=== PATIENT | female | born 1955 | race Caucasian/White ===

== ENCOUNTER 2017-03-15 13:07 | Outpatient (CLI) | payer MEDICARE ==
[2017-03-15 13:51] LABS: ALT (SGPT) 15 U/L (8-55); AST (SGOT) 19 U/L (5-34); Alkaline Phosphatase 68 U/L (40-150); Bilirubin, Direct 0.3 mg/dL (0.1-0.3); Bilirubin, Total 0.9 mg/dL (0.2-1.2); Cardiac Risk 3.6 (Less than 4.5); Cholesterol 169 mg/dl (< 200 Desired); HDL Cholesterol 47 mg/dL (>60 Neg Risk); LDL Cholesterol, Calculated 102 mg/dL; Protein, Total 6.9 g/dL (6.0-8.3); Triglycerides 100 mg/dL (Less than 150)
[2017-03-15 15:26] LABS: Free T4 (Free Thyroxine) 1.06 ng/dL (0.70-1.48); Thyroid Stimulating Hormone 1.6744 uIU/mL (0.35-4.94)
== END 2017-03-15 13:08 | disposition home or self-care (01) ==
LOC: MADLAB 13:07
PROVIDERS: ATTEND Specialist
DX: E03.9 Hypothyroidism, unspecified (principal); I25.10 Atherosclerotic heart disease of native coronary artery without angina pectoris
CPT/HCPCS: 36415; 80061; 80076; 84439; 84443; 84479

== ENCOUNTER 2017-08-02 12:48 | Outpatient (CLI) | payer MEDICARE ==
[2017-08-02 13:03] LABS: #Eosinphils 0.2 thou/uL (0.0-0.7); #Lymphocytes 1.2 thou/uL (1.20-3.40); #Monocytes 0.5 thou/uL (0.11-0.59); #Neutrophils 3.7 thou/uL (1.40-6.50); %Basophils 0.4 % (0.0-1.0); %Eosinophils 2.9 % (0.0-10.0); %Lymphocytes 21.5 % (21.0-51.0); %Monocytes 8.1 % (0.0-10.0); Hemoglobin 12.3 g/dL (12.0-16.0); Mean Corpuscular Hemoglobin 32.9 pg (27.0-31.0); Mean Corpuscular Volume 96.7 fl (81.0-99.0); Mean Platelet Volume 9.7 fL (7.4-10.4); Platelet Count 158 thou/uL (130-400); RBC Distribution Width 11.9 % (11.5-14.5); Red Blood Cell (RBC) Count 3.73 mill/uL (4.20-5.40); White Blood Cell (WBC) Count 5.6 thou/uL (4.8-10.8)
[2017-08-02 13:18] LABS: ALT (SGPT) Less than 6 U/L (8-55); AST (SGOT) 12 U/L (5-34); Albumin 3.6 g/dL (3.5-5.0); Alkaline Phosphatase 72 U/L (40-150); Anion Gap 15 mmol/L (10-20); BUN (Urea Nitrogen) 12 mg/dL (9.8-20.1); Bilirubin, Total 0.7 mg/dL (0.2-1.2); Calc. Creatinine Clearance 0 mL/min (70-130); Calcium 8.9 mg/dL (7.8-10.44); Carbon Dioxide 30 mmol/L (22-29); Chloride 102 mmol/L (98-107); Estimated GFR-MDRD 67; Globulin 2.6 g/dL (2.4-3.5); Glucose 105 mg/dL (70-105); Magnesium 1.8 mg/dL (1.6-2.6); Potassium 3.5 mmol/L (3.5-5.1); Protein, Total 6.2 g/dL (6.0-8.3); Sodium 143 mmol/L (136-145)
--- NOTE | 2017-08-02 15:30 | RAD ---
TWO VIEWS LEFT HIP: Date: 08-02-17 History: Left hip pain after a fall two months ago. FINDINGS: There is no evidence of a fracture, dislocation, or other osseous abnormality. Phleboliths overlie th e left hemipelvis. IMPRESSION: No acute osseous abnormality left hip. POS: [facility]
--- NOTE | 2017-08-02 15:35 | RAD ---
AP PELVIS: Date: 08-02-17 History: Left hip pain after a fall two months ago. Comparison: 09-01-15 FINDINGS: Partial visualization of an electronic device overlying the right lower quadrant. The osseous structu re do appear intact and no obvious fracture is seen involving the pelvis. Multiple phleboliths overli e the pelvis. IMPRESSION: No acute osseous abnormality. POS: [facility]
== END 2017-08-02 12:49 | disposition home or self-care (01) ==
LOC: MADLAB 12:48
PROVIDERS: ATTEND Family Medicine
DX: M25.552 Pain in left hip (principal); R60.9 Edema, unspecified; I25.2 Old myocardial infarction
CPT/HCPCS: 36415; 72170; 80053; 83735; 83880; 84484; 85025; 85652

== ENCOUNTER 2019-01-31 11:25 | Emergency (ER) | payer MEDICARE ==
[2019-01-31 12:19] LABS: #Basophils 0.1 thou/uL (0.0-0.2); #Eosinphils 0.1 thou/uL (0.0-0.7); #Lymphocytes 1.4 thou/uL (1.20-3.40); #Monocytes 0.8 thou/uL (0.11-0.59); #Neutrophils 7.8 thou/uL (1.40-6.50); %Basophils 0.7 % (0.0-1.0); %Eosinophils 0.7 % (0.0-10.0); %Lymphocytes 14.1 % (21.0-51.0); %Monocytes 8.2 % (0.0-10.0); %Neutrophils 76.3 % (42.0-75.0); Hemoglobin 13.6 g/dL (12.0-16.0); Mean Corpuscular HGB CONC 34.5 g/dL (32.0-36.0); Mean Corpuscular Hemoglobin 31.4 pg (27.0-31.0); Mean Platelet Volume 9.7 fL (7.4-10.4); Platelet Count 176 thou/uL (130-400); RBC Distribution Width 11.6 % (11.5-14.5); Red Blood Cell (RBC) Count 4.34 mill/uL (4.20-5.40); White Blood Cell (WBC) Count 10.2 thou/uL (4.8-10.8)
[2019-01-31 12:30] LABS: ALT (SGPT) 17 U/L (8-55); AST (SGOT) 15 U/L (5-34); Albumin 4.2 g/dL (3.4-4.8); Alkaline Phosphatase 116 U/L (40-150); Anion Gap 18 mmol/L (10-20); BUN (Urea Nitrogen) 8 mg/dL (9.8-20.1); Bilirubin, Total 1.1 mg/dL (0.2-1.2); CK (CPK) 153 U/L (29-168); Calc. Creatinine Clearance 0 mL/min (70-130); Calcium 9.2 mg/dL (7.8-10.44); Carbon Dioxide 25 mmol/L (23-31); Chloride 102 mmol/L (98-107); Estimated GFR-MDRD 35; Globulin 3.2 g/dL (2.4-3.5); Glucose 98 mg/dL (80-115); Lipase 4 U/L (8-78); Potassium 3.3 mmol/L (3.5-5.1); Protein, Total 7.4 g/dL (6.0-8.3); Sodium 142 mmol/L (136-145)
[2019-01-31 12:33] LABS: CKMB 1.5 ng/mL (0-6.6)
--- NOTE | 2019-01-31 12:33 | CT ---
CT Brain WO Con: 01/31/2019 11:49 AM CLINICAL HISTORY: Fall. COMPARISON: 03/05/2018 FINDINGS: Hemorrhage: None. Ventricular system: Normal in size and morphology for the patient's age. Cerebral parenchyma: Microvascular ischemic disease Midline shift: None. Mass: No mass effect. Calvarium: Normal. Visualized Paranasal sinuses: Clear. IMPRESSION: No acute intracranial abnormalities. Multifocal hypoattenuating foci of the cerebral white matter indicative of gliosis from microvascular ischemic disease.
--- NOTE | 2019-01-31 12:39 | RAD ---
Exam: Chest one view HISTORY:Altered mental status Comparison: 03/06/2018 FINDINGS: Lungs: No masses or consolidation. Cardiac silhouette:Remains enlarged Pulmonary vessels: Normal Pleural Spaces: Clear Pneumothorax: None Extrinsic electronic device overlies the chest. Osseous abnormalities: None of acuity. IMPRESSION: Stable chest. No focal consolidation.
[2019-01-31 13:13] LABS: Bilirubin Negative (Negative); Blood, Urine Negative (Negative); Clarity Clear (Clear); Glucose, Urine (Dipstick) Negative (Negative); Leukocyte Negative (Negative); Nitrite Negative (Negative); Protein, Urine (Dipstick) Negative (Neg-Trace); Urobilinogen 0.2 mg/dL (0.2-1.0)
== END 2019-01-31 14:20 | disposition short-term general hospital (02) ==
LOC: MADERS 11:25
DX: S09.90XA Unspecified injury of head, initial encounter (principal); R55 Syncope and collapse; E03.9 Hypothyroidism, unspecified; I10 Essential (primary) hypertension; F41.9 Anxiety disorder, unspecified; F32.9 Major depressive disorder, single episode, unspecified; F17.210 Nicotine dependence, cigarettes, uncomplicated; Z79.51 Long term (current) use of inhaled steroids; Z79.899 Other long term (current) drug therapy; W19.XXXA Unspecified fall, initial encounter
CPT/HCPCS: 36415; 51701; 70450; 71045; 80053; 81003; 82550; 82553; 83605; 83690; 84484; 85025; 87040; 93005; A4353

== ENCOUNTER 2020-07-14 14:56 | Outpatient (CLI) | payer MEDICARE ==
--- NOTE | 2020-07-14 15:12 | RAD ---
XR Chest Pa Lat STANDARD HISTORY: Pneumonia COMPARISON: None FINDINGS: The heart size is normal. The lungs are well expanded without focal areas of consolidation, pneumothorax or pleural effusions. Extrinsic electronic device overlying the left posterior chest is again seen. There are postop changes in the cervical spine. IMPRESSION: No radiographic evidence of acute cardiopulmonary process.
== END 2020-07-14 14:57 | disposition home or self-care (01) ==
LOC: MADLAB 14:56
PROVIDERS: ATTEND Nurse Practitioner Family
DX: J18.9 Pneumonia, unspecified organism (principal); J44.9 Chronic obstructive pulmonary disease, unspecified; N17.9 Acute kidney failure, unspecified
CPT/HCPCS: 71046

== ENCOUNTER 2020-12-16 17:39 | Emergency (ER) | payer MEDICARE ==
[2020-12-17 17:58] LABS: SARS-CoV-2 PCR by NAA Not Detected (NotDetected)
== END 2020-12-16 18:10 | disposition home or self-care (01) ==
LOC: MADERS 17:39
DX: J44.9 Chronic obstructive pulmonary disease, unspecified (principal); Z20.822 Contact with and (suspected) exposure to COVID-19; E03.9 Hypothyroidism, unspecified; I10 Essential (primary) hypertension; F17.210 Nicotine dependence, cigarettes, uncomplicated
CPT/HCPCS: 71046; U0003; U0005; 87635

== ENCOUNTER 2021-02-13 16:23 | Outpatient (CLI) | payer MEDICARE | END 2021-02-13 16:24 | disposition home or self-care (01) | LOC: MADRAD 16:23 | PROVIDERS: ATTEND Nurse Practitioner Family | DX: M25.551 Pain in right hip (principal); M25.552 Pain in left hip ==

== ENCOUNTER 2021-04-14 01:00 | Emergency (ER) | payer MEDICARE ==
[2021-04-14] MEDS ORDERED: Gabapentin 100 MG CAP ONE (01:19)
[2021-04-14] MEDS ORDERED: Acetaminophen 325 MG TAB ONE (01:19)
[2021-04-14] MEDS ORDERED: HYDROcodone/Acetaminophen 10/325 mg Tablet ONE (01:19)
[2021-04-14] MEDS ORDERED: Dexamethasone 4 MG TAB ONE (01:20)
== END 2021-04-14 01:35 | disposition home or self-care (01) ==
LOC: MADERS 01:00
DX: S76.912A Strain of unspecified muscles, fascia and tendons at thigh level, left thigh, initial encounter (principal); E03.9 Hypothyroidism, unspecified; I25.10 Atherosclerotic heart disease of native coronary artery without angina pectoris; I10 Essential (primary) hypertension; F17.210 Nicotine dependence, cigarettes, uncomplicated; J44.9 Chronic obstructive pulmonary disease, unspecified; Z79.82 Long term (current) use of aspirin; Z79.899 Other long term (current) drug therapy; W19.XXXA Unspecified fall, initial encounter
CPT/HCPCS: 99283; J8540

== ENCOUNTER 2021-06-30 15:52 | Outpatient (CLI) | payer MEDICARE | END 2021-06-30 15:53 | disposition home or self-care (01) | LOC: MADRAD 15:52 | PROVIDERS: ATTEND Nurse Practitioner Family | DX: M54.50 Low back pain, unspecified (principal); J44.9 Chronic obstructive pulmonary disease, unspecified; R05.9 Cough, unspecified; N17.9 Acute kidney failure, unspecified; M47.816 Spondylosis without myelopathy or radiculopathy, lumbar region | CPT/HCPCS: 71046; 72110 ==

== ENCOUNTER 2022-04-03 12:00 | Emergency (ER) | payer MEDICARE, OTHER ==
[2022-04-03] MEDS ORDERED: Acetaminophen 325 MG TAB ONE (13:18)
== END 2022-04-03 14:32 | disposition home or self-care (01) ==
LOC: MADERS 12:00
DX: S16.1XXA Strain of muscle, fascia and tendon at neck level, initial encounter (principal); S39.012A Strain of muscle, fascia and tendon of lower back, initial encounter; M25.551 Pain in right hip; M25.512 Pain in left shoulder; E07.9 Disorder of thyroid, unspecified; I10 Essential (primary) hypertension; E03.9 Hypothyroidism, unspecified; J44.9 Chronic obstructive pulmonary disease, unspecified; F17.210 Nicotine dependence, cigarettes, uncomplicated; W18.12XA Fall from or off toilet with subsequent striking against object, initial encounter; Z95.5 Presence of coronary angioplasty implant and graft
CPT/HCPCS: 72125; 72131; 72170

== ENCOUNTER 2022-06-20 16:09 | Emergency (ER) | payer OTHER | END 2022-06-20 17:30 | disposition home or self-care (01) | LOC: MADERS 16:09 | DX: S92.322A Displaced fracture of second metatarsal bone, left foot, initial encounter for closed fracture (principal); S92.332A Displaced fracture of third metatarsal bone, left foot, initial encounter for closed fracture; S92.342A Displaced fracture of fourth metatarsal bone, left foot, initial encounter for closed fracture; M25.532 Pain in left wrist; I10 Essential (primary) hypertension; E03.9 Hypothyroidism, unspecified; J44.9 Chronic obstructive pulmonary disease, unspecified; F17.210 Nicotine dependence, cigarettes, uncomplicated; W01.0XXA Fall on same level from slipping, tripping and stumbling without subsequent striking against object, initial encounter; Z95.5 Presence of coronary angioplasty implant and graft; Z79.899 Other long term (current) drug therapy ==

== ENCOUNTER 2022-11-02 07:18 | Emergency (ER) | payer OTHER ==
[2022-11-02 08:56] LABS: #Basophils 0.1 thou/uL (0.0-0.2); #Eosinphils 0.3 thou/uL (0.0-0.7); #Lymphocytes 1.3 thou/uL (1.20-3.40); #Monocytes 0.8 thou/uL (0.11-0.59); #Neutrophils 7.6 thou/uL (1.40-6.50); %Basophils 1.1 % (0.0-1.0); %Eosinophils 3.4 % (0.0-10.0); %Lymphocytes 12.4 % (21.0-51.0); %Monocytes 8.2 % (0.0-10.0); %Neutrophils 74.9 % (42.0-75.0); Hemoglobin 12.7 g/dL (12.0-16.0); Mean Corpuscular HGB CONC 35.1 g/dL (32.0-36.0); Mean Corpuscular Hemoglobin 30.4 pg (27.0-31.0); Mean Corpuscular Volume 86.5 fl (78.0-98.0); Mean Platelet Volume 7.6 fL (7.4-10.4); Platelet Count 207 10x3/uL (130-400); RBC Distribution Width 11.2 % (11.5-14.5); Red Blood Cell (RBC) Count 4.19 mill/uL (4.20-5.40); White Blood Cell (WBC) Count 10.1 10x3/uL (4.8-10.8)
[2022-11-02 09:14] LABS: ALT (SGPT) 15 U/L (8-55); AST (SGOT) 18 U/L (5-34); Alkaline Phosphatase 105 U/L (40-110); Anion Gap 14 mmol/L (10-20); BUN (Urea Nitrogen) 23 mg/dL (9.8-20.1); Bilirubin, Total 0.4 mg/dL (0.2-1.2); CK (CPK) 222 U/L (29-168); Calc. Creatinine Clearance 0 mL/min (70-130); Calcium 8.9 mg/dL (7.8-10.44); Carbon Dioxide 24 mmol/L (23-31); Chloride 99 mmol/L (98-107); Estimated GFR 38; Globulin 2.4 g/dL (2.4-3.5); Glucose 107 mg/dL (80-115); Magnesium 2.3 mg/dL (1.6-2.6); Potassium 4.2 mmol/L (3.5-5.1); Protein, Total 6.4 g/dL (5.8-8.1); Sodium 133 mmol/L (136-145)
[2022-11-02 09:34] LABS: Bilirubin Negative (Negative); Blood, Urine Negative (Negative); Clarity Clear (Clear); Glucose, Urine (Dipstick) Negative (Negative); Ketone, Urine Negative (Negative); Leukocyte Negative (Negative); Nitrite Negative (Negative); Protein, Urine (Dipstick) Trace mg/dL (Neg-Trace); Urobilinogen 0.2 mg/dL (Less than 2); pH, Urine 5.5 (5.0-9.0)
[2022-11-02 09:36] LABS: Specific Gravity, Urine 1.023 (1.002-1.036)
[2022-11-02 09:47] LABS: Amphetamine Not Detected (NotDetected); Barbiturates Screen Not Detected (NotDetected); Benzodiazepine Screen Not Detected (NotDetected); Cocaine Metabolite Screen Not Detected (NotDetected); Methadone Not Detected (NotDetected); Methamphetamine Detected (NotDetected); Opiate Screen Not Detected (NotDetected); Oxycodone Screen Not Detected (NotDetected); Phencyclidine (PCP) Not Detected (NotDetected); THC/Cannabinoid Screen Detected (NotDetected); Tricyclic Screen Not Detected (NotDetected)
[2022-11-02 09:48] LABS: Medtox Control Line Valid? VALID (VALID)
[2022-11-02] MEDS ORDERED: Acetaminophen 500 MG TAB ONE (13:32)
== END 2022-11-02 14:04 | disposition home or self-care (01) ==
LOC: MADERS 07:18
DX: M25.512 Pain in left shoulder (principal); G47.30 Sleep apnea, unspecified; M54.6 Pain in thoracic spine; E07.89 Other specified disorders of thyroid; E03.9 Hypothyroidism, unspecified; I10 Essential (primary) hypertension; J44.9 Chronic obstructive pulmonary disease, unspecified; F17.210 Nicotine dependence, cigarettes, uncomplicated; Z79.899 Other long term (current) drug therapy
CPT/HCPCS: 36416; 70450; 70486; 71045; 71250; 72125; 80053; 80306; 81003; 82550; 83605; 83735; 83880; 84484; 85025; 93005

== ENCOUNTER 2022-12-02 19:19 | Emergency (ER) | payer OTHER ==
[2022-12-02] MEDS ORDERED: Ipratropium/Albuterol 3 ML NEB ONE (19:47)
[2022-12-02] MEDS ORDERED: Aspirin Chewable 81 MG TAB ONE (19:48)
[2022-12-02] MEDS ORDERED: Nitroglycerin 0.4 MG TAB 1 EACH ONE (19:48)
[2022-12-02 19:57] LABS: #Basophils 0.1 thou/uL (0.0-0.2); #Eosinphils 0.3 thou/uL (0.0-0.7); #Lymphocytes 1.4 thou/uL (1.20-3.40); #Monocytes 0.5 thou/uL (0.11-0.59); #Neutrophils 7.6 thou/uL (1.40-6.50); %Basophils 0.8 % (0.0-1.0); %Eosinophils 2.7 % (0.0-10.0); %Lymphocytes 14.1 % (21.0-51.0); %Monocytes 5.5 % (0.0-10.0); %Neutrophils 76.8 % (42.0-75.0); Hemoglobin 13.4 g/dL (12.0-16.0); Mean Corpuscular HGB CONC 33.3 g/dL (32.0-36.0); Mean Corpuscular Hemoglobin 31.2 pg (27.0-31.0); Mean Corpuscular Volume 93.7 fl (78.0-98.0); Mean Platelet Volume 10.3 fL (7.4-10.4); Platelet Count 222 10x3/uL (130-400); RBC Distribution Width 13.1 % (11.5-14.5); White Blood Cell (WBC) Count 9.9 10x3/uL (4.8-10.8)
[2022-12-02 20:19] LABS: ALT (SGPT) 16 U/L (8-55); AST (SGOT) 18 U/L (5-34); Alkaline Phosphatase 96 U/L (40-110); Anion Gap 18 mmol/L (10-20); BUN (Urea Nitrogen) 22 mg/dL (9.8-20.1); Bilirubin, Total 0.3 mg/dL (0.2-1.2); CK (CPK) 126 U/L (29-168); Calc. Creatinine Clearance 0 mL/min (70-130); Calcium 8.8 mg/dL (7.8-10.44); Carbon Dioxide 18 mmol/L (23-31); Chloride 107 mmol/L (98-107); Estimated GFR 40; Globulin 2.5 g/dL (2.4-3.5); Glucose 104 mg/dL (80-115); Lipase 37 U/L (8-78); Magnesium 1.9 mg/dL (1.6-2.6); Potassium 3.4 mmol/L (3.5-5.1); Protein, Total 6.5 g/dL (5.8-8.1); Sodium 140 mmol/L (136-145)
[2022-12-02] MEDS ORDERED: cefTRIAXone (ROCEPHIN) 2 GM VIAL ONE (20:25)
[2022-12-02] MEDS ORDERED: Sodium Chloride 0.9% 100 ML ONE (20:26)
[2022-12-02] MEDS ORDERED: methylPREDNISolone Sod Succ/PF 125 MG/2 ML VIAL ONE (20:26)
[2022-12-02] MEDS ORDERED: Ipratropium Bromide 2.5 ml Neb ONE (20:58)
[2022-12-02] MEDS ORDERED: Potassium Chloride 20 MEQ TAB ONE (20:59)
[2022-12-02] MEDS ORDERED: Sodium Chloride 0.9% 250 ML 250 ML ONE (21:06)
[2022-12-02] MEDS ORDERED: Azithromycin 500 MG VIAL ONE (21:06)
[2022-12-02] MEDS ORDERED: Ondansetron PF 4 MG/2 ML Vial ONE (21:30)
== END 2022-12-02 22:35 | disposition home or self-care (01) ==
LOC: MADERS 19:19
DX: J44.1 Chronic obstructive pulmonary disease with (acute) exacerbation (principal); I10 Essential (primary) hypertension; E03.9 Hypothyroidism, unspecified; G47.30 Sleep apnea, unspecified; F17.210 Nicotine dependence, cigarettes, uncomplicated; Z95.5 Presence of coronary angioplasty implant and graft; Z79.899 Other long term (current) drug therapy
CPT/HCPCS: 71045; 80053; 82550; 83690; 83735; 84484; 85025; 93005; 96365; 96367; 96375; 99285; J0456; J0696; J2405; J2930; J3490; J7050; J7611; J7620

== ENCOUNTER 2022-12-21 16:27 | Emergency (ER) | payer OTHER ==
[~2022-12-21 16:27] MED LIST: Iopamidol 370 76% 200 ML VIAL ONE; Sodium Chloride 0.9% 100 ML BAG ONE
[2022-12-21] MEDS ORDERED: methylPREDNISolone Sod Succ/PF 125 MG/2 ML VIAL ONE (17:15)
[2022-12-21] MEDS ORDERED: Albuterol 2.5 MG/0.5 ML NEB ONE (17:15)
[2022-12-21] MEDS ORDERED: Ipratropium Bromide 2.5 ml Neb ONE (17:16)
[2022-12-21 17:34] LABS: #Basophils 0.1 thou/uL (0.0-0.2); #Eosinphils 0.1 thou/uL (0.0-0.7); #Lymphocytes 1.5 thou/uL (1.20-3.40); #Monocytes 0.5 thou/uL (0.11-0.59); #Neutrophils 4.6 thou/uL (1.40-6.50); %Eosinophils 1.6 % (0.0-10.0); %Lymphocytes 22.6 % (21.0-51.0); %Neutrophils 67.9 % (42.0-75.0); Hemoglobin 11.8 g/dL (12.0-16.0); Mean Corpuscular HGB CONC 32.6 g/dL (32.0-36.0); Mean Corpuscular Hemoglobin 31.8 pg (27.0-31.0); Mean Corpuscular Volume 97.6 fl (78.0-98.0); Mean Platelet Volume 9.5 fL (7.4-10.4); Platelet Count 159 10x3/uL (130-400); RBC Distribution Width 14.9 % (11.5-14.5); Red Blood Cell (RBC) Count 3.71 mill/uL (4.20-5.40); White Blood Cell (WBC) Count 6.7 10x3/uL (4.8-10.8)
[2022-12-21 17:52] LABS: ALT (SGPT) 16 U/L (8-55); AST (SGOT) 12 U/L (5-34); Albumin 3.8 g/dL (3.4-4.8); Alkaline Phosphatase 87 U/L (40-110); Anion Gap 13 mmol/L (10-20); BUN (Urea Nitrogen) 21 mg/dL (9.8-20.1); Bilirubin, Total 0.5 mg/dL (0.2-1.2); Calc. Creatinine Clearance 0 mL/min (70-130); Calcium 9.2 mg/dL (7.8-10.44); Carbon Dioxide 21 mmol/L (23-31); Chloride 108 mmol/L (98-107); Estimated GFR 53; Globulin 2.6 g/dL (2.4-3.5); Glucose 92 mg/dL (80-115); Potassium 3.3 mmol/L (3.5-5.1); Protein, Total 6.4 g/dL (5.8-8.1); Sodium 139 mmol/L (136-145)
[2022-12-21] MEDS ORDERED: Azithromycin 500 MG VIAL ONE (19:58)
[2022-12-21] MEDS ORDERED: Sodium Chloride 0.9% 100 ML ONE (19:58)
[2022-12-21] MEDS ORDERED: Ipratropium/Albuterol 3 ML NEB ONE (19:58)
[2022-12-21] MEDS ORDERED: cefTRIAXone (ROCEPHIN) 1 GM VIAL ONE (19:58)
[2022-12-21] MEDS ORDERED: Sodium Chloride 0.9% 250 ML 250 ML ONE (19:58)
[2022-12-21] MEDS ORDERED: Potassium Chloride 20 MEQ TAB ONE (20:11)
[2022-12-21] MEDS ORDERED: Azithromycin 250 MG TAB ONE (20:58)
== END 2022-12-21 21:05 | disposition home or self-care (01) ==
LOC: MADERS 16:27
DX: S22.070A Wedge compression fracture of T9-T10 vertebra, initial encounter for closed fracture (principal); S22.020A Wedge compression fracture of second thoracic vertebra, initial encounter for closed fracture; S22.051A Stable burst fracture of T5-T6 vertebra, initial encounter for closed fracture; J44.1 Chronic obstructive pulmonary disease with (acute) exacerbation; I10 Essential (primary) hypertension; E03.9 Hypothyroidism, unspecified; G47.30 Sleep apnea, unspecified; F17.210 Nicotine dependence, cigarettes, uncomplicated; I25.10 Atherosclerotic heart disease of native coronary artery without angina pectoris; X58.XXXA Exposure to other specified factors, initial encounter; Z95.5 Presence of coronary angioplasty implant and graft; Z79.899 Other long term (current) drug therapy
CPT/HCPCS: 71045; 71275; 80053; 83880; 84484 ×2; 85025; 85379; 93005; 94760; J0456; 96374; 96375; J0696; J2930; J3490; J7050; J7611; J7620

== ENCOUNTER 2022-12-26 13:44 | Emergency (ER) | payer OTHER ==
[2022-12-26] MEDS ORDERED: predniSONE 20 MG TAB ONE (14:13)
[2022-12-26] MEDS ORDERED: Ipratropium/Albuterol 3 ML NEB ONE (14:13)
== END 2022-12-26 14:15 | disposition left against medical advice (07) ==
LOC: MADERS 13:44
DX: R06.02 Shortness of breath (principal); R07.89 Other chest pain; E03.9 Hypothyroidism, unspecified; I10 Essential (primary) hypertension; J44.9 Chronic obstructive pulmonary disease, unspecified; F17.210 Nicotine dependence, cigarettes, uncomplicated; Z79.899 Other long term (current) drug therapy
CPT/HCPCS: 99284; J7512; J7620

== ENCOUNTER 2022-12-31 17:18 | Emergency (ER) | payer OTHER ==
[2022-12-31] MEDS ORDERED: Albuterol 2.5 MG/0.5 ML NEB ONE ×2 (18:19→19:46)
[2022-12-31] MEDS ORDERED: cefTRIAXone (ROCEPHIN) 2 GM VIAL ONE ×2 (18:19→18:21)
[2022-12-31] MEDS ORDERED: Aspirin Chewable 81 MG TAB ONE (18:19)
[2022-12-31] MEDS ORDERED: Nitroglycerin 0.4 MG TAB 1 EACH ONE (18:19)
[2022-12-31] MEDS ORDERED: Ipratropium Bromide 2.5 ml Neb ONE ×2 (18:19→19:46)
[2022-12-31] MEDS ORDERED: methylPREDNISolone Sod Succ/PF 125 MG/2 ML VIAL ONE (18:19)
[2022-12-31] MEDS ORDERED: Sodium Chloride 0.9% 100 ML ONE (18:19)
[2022-12-31 18:31] LABS: Anisocytosis SLIGHT = 6-15 cells (100X) (0-5/hpf); Band 3 % (5-11); Eosinophils 1 % (0-10); Hypochromia SLIGHT = 6-15 cells (100X) (0-5/hpf); Lymphocytes 8 % (21-51); MDiff Complete? YES; Mean Corpuscular Hemoglobin 32.2 pg (27.0-31.0); Mean Corpuscular Volume 94.6 fl (78.0-98.0); Mean Platelet Volume 8.8 fL (7.4-10.4); Monocytes 1 % (0-10); Neutrophil 87 % (42-75); Platelet Count 232 10x3/uL (130-400); Platelet Morphology Comment Appears Adequate; RBC Distribution Width 15.2 % (11.5-14.5); Red Blood Cell (RBC) Count 4.05 mill/uL (4.20-5.40); White Blood Cell (WBC) Count 10.3 10x3/uL (4.8-10.8)
[2022-12-31 18:38] LABS: ALT (SGPT) 17 U/L (8-55); AST (SGOT) 12 U/L (5-34); Albumin 3.7 g/dL (3.4-4.8); Alkaline Phosphatase 86 U/L (40-110); Anion Gap 15 mmol/L (10-20); BUN (Urea Nitrogen) 15 mg/dL (9.8-20.1); Bilirubin, Total 0.5 mg/dL (0.2-1.2); Calc. Creatinine Clearance 0 mL/min (70-130); Calcium 8.9 mg/dL (7.8-10.44); Carbon Dioxide 22 mmol/L (23-31); Chloride 104 mmol/L (98-107); Estimated GFR 64; Globulin 2.4 g/dL (2.4-3.5); Glucose 170 mg/dL (80-115); Potassium 3.4 mmol/L (3.5-5.1); Protein, Total 6.1 g/dL (5.8-8.1); Sodium 138 mmol/L (136-145)
[2022-12-31] MEDS ORDERED: Sodium Chloride 0.9% 500 ML ONE (18:52)
[2022-12-31] MEDS ORDERED: Potassium Chloride 20 MEQ TAB ONE (18:52)
[2022-12-31] MEDS ORDERED: Azithromycin 500 MG VIAL ONE (18:52)
[2022-12-31] MEDS ORDERED: Magnesium 2 GM/50 ML BAG (IN WATER) ONE (22:01)
[2022-12-31 22:09] LABS: SARS-CoV-2 NAA Rapid Test Not Detected (NotDetected)
[2022-12-31 22:11] LABS: Amphetamine Not Detected (NotDetected); Barbiturates Screen Not Detected (NotDetected); Benzodiazepine Screen Not Detected (NotDetected); Cocaine Metabolite Screen Not Detected (NotDetected); Methadone Not Detected (NotDetected); Methamphetamine Not Detected (NotDetected); Opiate Screen Not Detected (NotDetected); Oxycodone Screen Not Detected (NotDetected); Phencyclidine (PCP) Not Detected (NotDetected); THC/Cannabinoid Screen Not Detected (NotDetected); Tricyclic Screen Not Detected (NotDetected)
[2022-12-31] MEDS ORDERED: Ipratropium/Albuterol 3 ML NEB ONE (22:11)
[2023-01-01] MEDS ORDERED: methylPREDNISolone Sod Succ/PF 125 MG/2 ML VIAL ONE (00:06)
== END 2023-01-01 02:07 | disposition short-term general hospital (02) ==
LOC: MADERS 17:18
DX: J44.1 Chronic obstructive pulmonary disease with (acute) exacerbation (principal); E87.6 Hypokalemia; R07.89 Other chest pain; F17.210 Nicotine dependence, cigarettes, uncomplicated; I10 Essential (primary) hypertension; E03.9 Hypothyroidism, unspecified; G40.409 Other generalized epilepsy and epileptic syndromes, not intractable, without status epilepticus; G47.30 Sleep apnea, unspecified; Z20.822 Contact with and (suspected) exposure to COVID-19; Z95.5 Presence of coronary angioplasty implant and graft; Z79.899 Other long term (current) drug therapy
CPT/HCPCS: 71045; 80053; 80306; 83735; 83880; 84484; 85025; 93005; 94760; 96365; 96366; 96367; 96375; 96376; J0456; J0696; J2930; J3475; J3490; J7030; J7611; J7620

== ENCOUNTER 2023-01-04 10:33 | Emergency (ER) | payer OTHER ==
[2023-01-04] MEDS ORDERED: Ketorolac Tromethamine 30 MG/ML VIAL ONE (12:15)
[2023-01-04 12:17] LABS: #Basophils 0.1 thou/uL (0.0-0.2); #Eosinphils 0.1 thou/uL (0.0-0.7); #Lymphocytes 1.6 thou/uL (1.20-3.40); #Monocytes 0.6 thou/uL (0.11-0.59); #Neutrophils 6.1 thou/uL (1.40-6.50); %Basophils 0.9 % (0.0-1.0); %Eosinophils 1.1 % (0.0-10.0); %Lymphocytes 18.4 % (21.0-51.0); %Monocytes 7.4 % (0.0-10.0); %Neutrophils 72.2 % (42.0-75.0); Hemoglobin 12.6 g/dL (12.0-16.0); Mean Corpuscular HGB CONC 33.3 g/dL (32.0-36.0); Mean Corpuscular Hemoglobin 32.2 pg (27.0-31.0); Mean Corpuscular Volume 96.8 fl (78.0-98.0); Mean Platelet Volume 9.4 fL (7.4-10.4); Platelet Count 159 10x3/uL (130-400); RBC Distribution Width 15.7 % (11.5-14.5); White Blood Cell (WBC) Count 8.5 10x3/uL (4.8-10.8)
[2023-01-04 12:35] LABS: ALT (SGPT) 19 U/L (8-55); AST (SGOT) 13 U/L (5-34); Albumin 3.7 g/dL (3.4-4.8); Alkaline Phosphatase 75 U/L (40-110); Anion Gap 14 mmol/L (10-20); BUN (Urea Nitrogen) 22 mg/dL (9.8-20.1); Bilirubin, Total 0.5 mg/dL (0.2-1.2); Calc. Creatinine Clearance 0 mL/min (70-130); Calcium 8.7 mg/dL (7.8-10.44); Carbon Dioxide 25 mmol/L (23-31); Chloride 101 mmol/L (98-107); Estimated GFR 71; Globulin 1.8 g/dL (2.4-3.5); Glucose 116 mg/dL (80-115); Potassium 3.4 mmol/L (3.5-5.1); Protein, Total 5.5 g/dL (5.8-8.1); Sodium 137 mmol/L (136-145)
[2023-01-04] MEDS ORDERED: Ipratropium/Albuterol 3 ML NEB ONE (12:48)
[2023-01-04] MEDS ORDERED: Lidocaine 4% Patch ONE (13:39)
[2023-01-04] MEDS ORDERED: Ondansetron ODT 4 MG TAB ONE (13:48)
[2023-01-04] MEDS ORDERED: Morphine 4 MG/ML VIAL ONE (13:48)
[2023-01-04] MEDS ORDERED: Cyclobenzaprine 10 MG TAB ONE (15:00)
== END 2023-01-04 16:26 | disposition home or self-care (01) ==
LOC: MADERS 10:33
DX: R09.1 Pleurisy (principal); J18.9 Pneumonia, unspecified organism; I10 Essential (primary) hypertension; E03.9 Hypothyroidism, unspecified; G40.409 Other generalized epilepsy and epileptic syndromes, not intractable, without status epilepticus; G47.30 Sleep apnea, unspecified; J44.9 Chronic obstructive pulmonary disease, unspecified; F17.200 Nicotine dependence, unspecified, uncomplicated; Z95.5 Presence of coronary angioplasty implant and graft; Z79.899 Other long term (current) drug therapy
CPT/HCPCS: 71045; 80053; 83880; 84484; 85025; 93005; 94640; 94760; 96372; J1885; J2270; J7620; Q0162

== ENCOUNTER 2023-10-19 16:07 | Emergency (ER) | payer OTHER ==
[2023-10-19] MEDS ORDERED: Naproxen 500 MG TAB ONE (16:28)
[2023-10-19] MEDS ORDERED: HYDROcodone/Acetaminophen 10/325 mg Tablet ONE (16:30)
== END 2023-10-19 17:15 | disposition home or self-care (01) ==
LOC: MADERS 16:07
DX: S20.212A Contusion of left front wall of thorax, initial encounter (principal); M54.6 Pain in thoracic spine; I10 Essential (primary) hypertension; E03.9 Hypothyroidism, unspecified; J44.9 Chronic obstructive pulmonary disease, unspecified; F17.200 Nicotine dependence, unspecified, uncomplicated; Z79.899 Other long term (current) drug therapy; W18.30XA Fall on same level, unspecified, initial encounter

== ENCOUNTER 2023-11-03 11:49 | Emergency (ER) | payer OTHER ==
[2023-11-03] MEDS ORDERED: predniSONE 20 MG TAB ONE (12:30)
[2023-11-03] MEDS ORDERED: Ipratropium/Albuterol 3 ML NEB ONE (12:30)
[2023-11-03] MEDS ORDERED: predniSONE 10 MG TAB ONE (12:30)
[2023-11-03] MEDS ORDERED: Acetaminophen 500 MG TAB ONE (12:31)
== END 2023-11-03 13:22 | disposition home or self-care (01) ==
LOC: MADERS 11:49
DX: S42.262A Displaced fracture of lesser tuberosity of left humerus, initial encounter for closed fracture (principal); J44.1 Chronic obstructive pulmonary disease with (acute) exacerbation; E03.9 Hypothyroidism, unspecified; F32.A Depression, unspecified; I10 Essential (primary) hypertension; F17.200 Nicotine dependence, unspecified, uncomplicated; Z79.899 Other long term (current) drug therapy; W18.30XA Fall on same level, unspecified, initial encounter
CPT/HCPCS: 71045; J7512; J7620

== ENCOUNTER 2024-01-22 17:33 | Emergency (ER) | payer OTHER ==
[2024-01-22 18:40] LABS: Prothrombin Time 13.2 sec (12.0-14.7)
[2024-01-22] MEDS ORDERED: Mag-Al Plus 1200/1200/120 MG (30 mL) UDCUP ONE (18:40)
[2024-01-22] MEDS ORDERED: Nitroglycerin 0.4 MG TAB 1 EACH ONE (18:40)
[2024-01-22] MEDS ORDERED: Lidocaine 2% Viscous 100 ML BOTTLE ONE (18:40)
[2024-01-22 18:41] LABS: PTT 28.4 sec (22.9-36.1)
[2024-01-22 18:43] LABS: Band 4 % (5-11); D-Dimer Test 0.34 mcg/mL (0.27-0.43); Eosinophils 1 % (0-10); Hematocrit 42.1 % (36.0-47.0); Hemoglobin 13.2 g/dL (12.0-16.0); Hypochromia SLIGHT = 6-15 cells (100X) (0-5/hpf); Lymphocytes 25 % (21-51); MDiff Complete? YES; Mean Corpuscular HGB CONC 31.3 g/dL (32.0-36.0); Mean Corpuscular Hemoglobin 30.5 pg (27.0-31.0); Mean Corpuscular Volume 97.5 fl (78.0-98.0); Mean Platelet Volume 7.5 fL (7.4-10.4); Monocytes 9 % (0-10); Neutrophil 61 % (42-75); Platelet Adequacy Comment Appears Adequate; Platelet Count 181 10x3/uL (130-400); RBC Distribution Width 13.1 % (11.5-14.5); Red Blood Cell (RBC) Count 4.31 mill/uL (4.20-5.40); White Blood Cell (WBC) Count 5.5 10x3/uL (4.8-10.8)
[2024-01-22 18:47] LABS: ALT (SGPT) 10 U/L (8-55); AST (SGOT) 16 U/L (5-34); Albumin 4.3 g/dL (3.4-4.8); Alkaline Phosphatase 109 U/L (40-110); Anion Gap 16 mmol/L (10-20); BUN (Urea Nitrogen) 12 mg/dL (9.8-20.1); Bilirubin, Total 0.6 mg/dL (0.2-1.2); Calc. Creatinine Clearance 0 mL/min (70-130); Calcium 9.5 mg/dL (7.8-10.44); Carbon Dioxide 21 mmol/L (23-31); Chloride 103 mmol/L (98-107); Estimated GFR 69; Globulin 2.5 g/dL (2.4-3.5); Glucose 101 mg/dL (80-115); Lipase 11 U/L (8-78); Potassium 3.1 mmol/L (3.5-5.1); Protein, Total 6.8 g/dL (5.8-8.1); Sodium 137 mmol/L (136-145); Troponin I 0.047 ng/mL (< 0.028)
[2024-01-22] MEDS ORDERED: Potassium Chloride 20 MEQ TAB ONE (19:33)
[2024-01-22] MEDS ORDERED: Famotidine/PF 20 mg/2ml Vial ONE (20:58)
[2024-01-22] MEDS ORDERED: Nitroglycerin 2% Ointment 1 INCH/1 GM Packet ONE (20:58)
[2024-01-22 22:35] LABS: Troponin I 0.032 ng/mL (< 0.028)
[2024-01-22] MEDS ORDERED: Acetaminophen 500 MG TAB ONE (23:35)
[2024-01-23] MEDS ORDERED: Morphine 2 MG/ML VIAL ONE (01:33)
== END 2024-01-23 03:35 | disposition short-term general hospital (02) ==
LOC: MADERS 17:33
DX: R07.9 Chest pain, unspecified (principal); R79.89 Other specified abnormal findings of blood chemistry; E87.6 Hypokalemia; I10 Essential (primary) hypertension; F17.200 Nicotine dependence, unspecified, uncomplicated
CPT/HCPCS: 71046; 80053; 83690; 83880; 84484; 85025; 85379; 85610; 85730; 93005; 94760; 96374; 96375; J2272; S0028

== ENCOUNTER 2024-05-20 18:40 | Emergency (ER) | payer MEDICARE ==
[2024-05-20] MEDS ORDERED: Ketorolac Tromethamine 30 MG (1 mL) VIAL ONE (19:27)
[2024-05-20] MEDS ORDERED: Dexamethasone 10 MG/ML VIAL ONE (19:27)
== END 2024-05-20 20:55 | disposition home or self-care (01) ==
LOC: MADERS 18:40
DX: M54.2 Cervicalgia (principal); R51.9 Headache, unspecified; I10 Essential (primary) hypertension; J44.9 Chronic obstructive pulmonary disease, unspecified; F17.210 Nicotine dependence, cigarettes, uncomplicated
CPT/HCPCS: 99283; J1100; J1885

== ENCOUNTER 2025-08-29 18:32 | Emergency (ER) | payer MEDICARE ==
[2025-08-29] MEDS ORDERED: Acetaminophen 500 MG TAB ONE (19:07)
[2025-08-29] MEDS ORDERED: Dexamethasone 10 MG/ML VIAL ONE (19:07)
== END 2025-08-29 19:30 | disposition home or self-care (01) ==
LOC: MADERS 18:32
DX: S23.3XXA Sprain of ligaments of thoracic spine, initial encounter (principal); S39.012A Strain of muscle, fascia and tendon of lower back, initial encounter; I25.10 Atherosclerotic heart disease of native coronary artery without angina pectoris; E03.9 Hypothyroidism, unspecified; R56.9 Unspecified convulsions; J44.9 Chronic obstructive pulmonary disease, unspecified; F17.210 Nicotine dependence, cigarettes, uncomplicated; X50.0XXA Overexertion from strenuous movement or load, initial encounter; Y93.01 Activity, walking, marching and hiking; Z79.899 Other long term (current) drug therapy
CPT/HCPCS: 96372; 99283; J1100